=== PATIENT | male | born 1935 | race Caucasian/White ===

== ENCOUNTER → 2024-03-07 09:45 | Outpatient (REF) | payer OTHER, SELFPAY | LOC: HWRAD 09:45 | PROVIDERS: ATTENDING PHYSICIAN Family Medicine | DX: H53.9 Unspecified visual disturbance (principal) | CPT/HCPCS: 70450 ==

== ENCOUNTER → 2024-05-09 11:02 | Outpatient (REF) | payer OTHER, SELFPAY | LOC: HWRAD 11:02 | PROVIDERS: ATTENDING PHYSICIAN Family Medicine | DX: R07.81 Pleurodynia (principal); R10.31 Right lower quadrant pain | CPT/HCPCS: 71101; 73502 ==

== ENCOUNTER → 2024-07-09 16:26 | Outpatient (REF) | payer OTHER, SELFPAY | LOC: HWWDC 16:26 | PROVIDERS: ATTENDING PHYSICIAN Family Medicine | DX: Z12.31 Encounter for screening mammogram for malignant neoplasm of breast (principal); N64.4 Mastodynia | CPT/HCPCS: 77063; 77067 ==

== ENCOUNTER → 2024-11-13 10:51 | Outpatient (REF) | payer OTHER, SELFPAY | LOC: HWRAD 10:51 | PROVIDERS: ATTENDING PHYSICIAN Family Medicine | DX: M54.50 Low back pain, unspecified (principal); R07.81 Pleurodynia; M54.6 Pain in thoracic spine | CPT/HCPCS: 71046; 71110; 72072; 72110 ==

== ENCOUNTER → 2024-11-24 09:40 | Outpatient (REF) | payer OTHER, SELFPAY | LOC: RAD 09:40 | PROVIDERS: ATTENDING PHYSICIAN Family Medicine | DX: J90 Pleural effusion, not elsewhere classified (principal); J98.4 Other disorders of lung | CPT/HCPCS: 71260; Q9967 ==